=== PATIENT | female | born 1990 | race Caucasian/White ===

== ENCOUNTER 2022-01-22 04:38 | Inpatient (IN) | payer BC ==
[2022-01-22 04:58] VITALS: BMI 39.4
[2022-01-22] MEDS ORDERED: Fentanyl 2 mcg/Bup 0.1% Cadd 100 ML ONE (05:16)
[2022-01-22] MEDS ORDERED: Lidocaine 1% (PF) 30 ML VIAL SC PRN (05:17)
[2022-01-22] MEDS ORDERED: hydrALAZINE 20 MG/ML VIAL SLOW IVP PRN ×2 (05:17→08:56)
[2022-01-22] MEDS ORDERED: Promethazine HCl 25 MG/ML VIAL IM PRN ×2 (05:17→06:24)
[2022-01-22] MEDS ORDERED: Ondansetron PF 4 MG/2 ML Vial IVP PRN ×3 (05:17→08:56)
[2022-01-22] MEDS ORDERED: NS w/ Oxytocin 30 units 500 ML IV SCH ×3 (05:30→08:56)
[2022-01-22] MEDS ORDERED: Lactated Ringer's 1,000 ML IV SCH (05:30)
[2022-01-22 05:50] LABS: Hemoglobin 13.4 g/dL (12.0-15.5); Mean Corpuscular HGB CONC 34.4 g/dL (32.0-36.0); Mean Corpuscular Hemoglobin 29.9 pg (27.0-33.0); Mean Corpuscular Volume 86.8 fl (81.6-98.3); Mean Platelet Volume 11.5 fl (7.4-10.4); Platelet Count 245 10x3/uL (150-450); RBC Distribution Width 12.7 % (11.5-14.5); Red Blood Cell (RBC) Count 4.48 10x6/uL (3.90-5.03); White Blood Cell (WBC) Count 13.2 10x3/uL (3.5-10.5)
[2022-01-22] MEDS ORDERED: Acetaminophen 325 MG TAB PO PRN (06:24)
[2022-01-22] MEDS ORDERED: diphenhydrAMINE 50 MG/ML VIAL IVP PRN (06:24)
[2022-01-22] MEDS ORDERED: Naloxone HCl 0.4 mg/ml Vial IVP PRN ×2 (06:24)
[2022-01-22] MEDS ORDERED: Lactated Ringer's 500 ML IV PRN (06:24)
[2022-01-22] MEDS ORDERED: Moisturizing Cream (Eucerin) 113 GM JAR TOP PRN (06:24)
[2022-01-22] MEDS ORDERED: ePHEDrine Sulfate 50 MG/10 ML VIAL SLOW IVP PRN (06:24)
[2022-01-22] MEDS ORDERED: Communication Order-Pharmacy FS SCH (06:30)
[2022-01-22] MEDS ORDERED: Fentanyl 2 mcg/Bupivacaine 0.1% Cassette 100 ML EPIDURAL SCH (06:30)
[2022-01-22 06:39] LABS: HBSAg Index 0.24 S/CO (0-0.99); Hep B Surf Ag Non-Reactive S/CO (NonReactive); Syphilis Antibody Nonreactive (Nonreactive); Syphilis Antibody Index 0.05 S/CO (<1.00 Non-Reactive)
[2022-01-22] MEDS ORDERED: Bupivacaine/Epinephrine 0.25% 30 ML VIAL ONE (08:00)
[2022-01-22] MEDS ORDERED: Methylergonovine 0.2 MG/ML VIAL IM PRN (08:56)
[2022-01-22] MEDS ORDERED: Misoprostol 200 MCG TAB VAG PRN (08:56)
[2022-01-22] MEDS ORDERED: HYDROcodone/Acetaminophen 5/325 mg Tablet PO PRN ×2 (08:56)
[2022-01-22] MEDS ORDERED: Lanolin Ointment 7 GM TUBE TOP PRN (08:56)
[2022-01-22] MEDS ORDERED: Boostrix 0.5 ML (Tdap) VIAL (>/=7 yrs of age) IM ONE (08:56)
[2022-01-22] MEDS ORDERED: Bisacodyl 10 MG SUPP PR PRN (08:56)
[2022-01-22] MEDS ORDERED: Milk Of Magnesia 30 ML UDCUP PO PRN (08:56)
[2022-01-22 09:29] LABS: SARS-CoV-2 NAA Rapid Test Not Detected (NotDetected)
[2022-01-22] MEDS: Docusate 100 MG CAP PO SCH ×2 (11:45→21:38)
[2022-01-22] MEDS: Prenatal Vitamin 1 TAB PO SCH (11:46)
[2022-01-22] MEDS: Fluticasone Propionate Nasal Spray 16 gm Bottle NASAL SCH (11:54)
[2022-01-22] MEDS: Cefdinir 300 MG CAP PO SCH ×2 (11:54→21:40)
[2022-01-22] MEDS: Ferrous Sulfate 325 MG TAB PO SCH (16:08)
[2022-01-23 08:03] VITALS: BP 116/75; TEMP 98.2
[2022-01-23] MEDS: Ferrous Sulfate 325 MG TAB PO SCH ×2 (08:29→09:17)
[2022-01-23] MEDS: Docusate 100 MG CAP PO SCH (08:30)
[2022-01-23] MEDS: Fluticasone Propionate Nasal Spray 16 gm Bottle NASAL SCH (08:30)
[2022-01-23] MEDS: Prenatal Vitamin 1 TAB PO SCH (08:30)
[2022-01-23] MEDS: Cefdinir 300 MG CAP PO SCH (08:31)
== END 2022-01-23 13:10 | disposition home or self-care (01) | DRG 807 ==
LOC: CSHLD/OP 04:38 → CSHLD 05:08 → CSHPED 11:08
PROVIDERS: ADMIT Obstetrics & Gynecology; ATTEND Obstetrics & Gynecology
PROC: 3E0334Z Introduction of Serum, Toxoid and Vaccine into Peripheral Vein, Percutaneous Approach (ICD-10-PCS; principal; 2022-01-22)
PROC: 10E0XZZ Delivery of Products of Conception, External Approach (ICD-10-PCS; 2022-01-22)
DX: O26.893 Other specified pregnancy related conditions, third trimester (principal); Z37.0 Single live birth; O77.0 Labor and delivery complicated by meconium in amniotic fluid; O69.81X0 Labor and delivery complicated by cord around neck, without compression, not applicable or unspecified; Z88.0 Allergy status to penicillin; Z88.8 Allergy status to other drugs, medicaments and biological substances; Z79.51 Long term (current) use of inhaled steroids; Z3A.39 39 weeks gestation of pregnancy; Z20.822 Contact with and (suspected) exposure to COVID-19; Z67.11 Type A blood, Rh negative; Z79.899 Other long term (current) drug therapy
CPT/HCPCS: 36415; 51702; 85027; 85461; 86780; 86850; 86900; 86901; 87340; 90384; 96372; 99285; J2590; U0002

== ENCOUNTER 2023-10-04 19:33 | Day surgery (SDC) | payer BC ==
[2023-10-04 19:56] VITALS: BMI 39.6
[2023-10-04] MEDS ORDERED: hydrALAZINE 20 MG/ML VIAL SLOW IVP PRN (20:11)
[2023-10-04] MEDS ORDERED: Lactated Ringer's 1,000 ML IV SCH ×2 (20:15→23:00)
[2023-10-04] MEDS: Ondansetron PF 4 MG/2 ML Vial IVP SCH (21:58)
== END 2023-10-04 23:40 | disposition home or self-care (01) ==
LOC: CSHLD/OP 19:33
PROVIDERS: ATTEND Advanced Practice Midwife
DX: O99.891 Other specified diseases and conditions complicating pregnancy (principal); R10.9 Unspecified abdominal pain; R11.2 Nausea with vomiting, unspecified; R19.7 Diarrhea, unspecified; O00.01 Abdominal pregnancy with intrauterine pregnancy; O99.283 Endocrine, nutritional and metabolic diseases complicating pregnancy, third trimester; E86.0 Dehydration; O99.513 Diseases of the respiratory system complicating pregnancy, third trimester; J45.909 Unspecified asthma, uncomplicated; Z79.51 Long term (current) use of inhaled steroids; Z79.899 Other long term (current) drug therapy; Z88.8 Allergy status to other drugs, medicaments and biological substances; Z88.0 Allergy status to penicillin; Z90.89 Acquired absence of other organs; Z98.890 Other specified postprocedural states; Z3A.38 38 weeks gestation of pregnancy
CPT/HCPCS: J2405

== ENCOUNTER 2023-10-20 14:39 | Inpatient (IN) | payer BC ==
[2023-10-20] MEDS ORDERED: Promethazine HCl 25 MG/ML VIAL IM PRN (15:22)
[2023-10-20] MEDS ORDERED: Lidocaine 1% (PF) 30 ML VIAL SC PRN (15:22)
[2023-10-20] MEDS ORDERED: fentaNYL 50 mcg/mL 1 mL Vial SLOW IVP PRN (15:22)
[2023-10-20] MEDS ORDERED: Ondansetron PF 4 MG/2 ML Vial IVP PRN (15:22)
[2023-10-20] MEDS ORDERED: hydrALAZINE 20 MG/ML VIAL SLOW IVP PRN ×2 (15:22→20:42)
[2023-10-20] MEDS ORDERED: HYDROcodone/Acetaminophen 5/325 mg Tablet PO PRN ×4 (15:22→20:42)
[2023-10-20] MEDS ORDERED: Misoprostol 200 MCG TAB PR PRN (15:22)
[2023-10-20] MEDS ORDERED: Oxytocin 30 units/NS 500 ML 500 ML IV SCH ×2 (15:30→20:42)
[2023-10-20 15:56] LABS: Hemoglobin 14.9 g/dL (12.0-15.5); Mean Corpuscular HGB CONC 36.3 g/dL (32.0-36.0); Mean Corpuscular Hemoglobin 30.7 pg (27.0-33.0); Mean Corpuscular Volume 84.5 fL (81.6-98.3); Mean Platelet Volume 12.8 fL (7.4-10.4); Platelet Count 256 10x3/uL (150-450); RBC Distribution Width 13.4 % (11.5-14.5); Red Blood Cell (RBC) Count 4.85 10x6/uL (3.90-5.03); White Blood Cell (WBC) Count 16.2 10x3/uL (3.5-10.5)
[2023-10-20] MEDS: Lactated Ringer's 1,000 ML IV SCH (16:23)
[2023-10-20 16:32] LABS: HBsAg Index 0.18 S/CO (0-0.99); Hep B Surf Ag - L&D Non-Reactive S/CO (NonReactive); Syphilis Antibody Nonreactive (Nonreactive); Syphilis Antibody Index 0.04 S/CO (<1.00 Non-Reactive)
[2023-10-20] MEDS ORDERED: Benzocaine-Menthol 82.5 ML CAN TOP PRN (20:42)
[2023-10-20] MEDS ORDERED: Bisacodyl 10 MG SUPP PR PRN (20:42)
[2023-10-20] MEDS ORDERED: Milk Of Magnesia 30 ML UDCUP PO PRN (20:42)
[2023-10-20] MEDS ORDERED: Misoprostol 200 MCG TAB VAG PRN (20:42)
[2023-10-20 20:45] VITALS: BMI 39.4
[2023-10-20] MEDS: Docusate 100 MG CAP PO SCH (21:48)
[2023-10-20] MEDS ORDERED: Acetaminophen 500 MG TAB PO PRN (22:37)
[2023-10-21] MEDS: Ferrous Sulfate 325 MG TAB PO SCH (07:20)
[2023-10-21] MEDS: Boostrix 0.5 ML (Tdap) VIAL (>/=7 yrs of age) IM ONE (07:20)
[2023-10-21] MEDS: Prenatal Vitamin 1 TAB PO SCH (08:30)
[2023-10-21 16:05] VITALS: BP 107/59; TEMP 97.5
== END 2023-10-21 18:45 | disposition home or self-care (01) | DRG 807 ==
LOC: CSHLD/OP 14:39 → CSHLD 15:36 → CSHPP 21:10
PROVIDERS: ADMIT Obstetrics & Gynecology; ATTEND Obstetrics & Gynecology
PROC: 10E0XZZ Delivery of Products of Conception, External Approach (ICD-10-PCS; principal; 2023-10-20)
DX: O48.0 Post-term pregnancy (principal); Z37.0 Single live birth; Z88.0 Allergy status to penicillin; Z88.8 Allergy status to other drugs, medicaments and biological substances; Z3A.40 40 weeks gestation of pregnancy
CPT/HCPCS: 85027; 86780; 86850; 86900; 86901; 87340; 99285